=== PATIENT | male | born 1960 | race Two or more races ===

== ENCOUNTER 2023-01-08 09:42 | Emergency (ER) | payer MEDICAID, MEDICARE ==
[~2023-01-08] VITALS: Ht 175.3 cm; Wt 100.0 kg
[2023-01-08 09:52] VITALS: O2SAT 100
[2023-01-08] MEDS ORDERED: LIDOCAINE 5% PATCH TOP SCH (10:30)
[2023-01-08] MEDS ORDERED: KETOROLAC 30MG/ML VIAL IM ONE (10:30)
[2023-01-08] MEDS ORDERED: CYCLOBENZAPRINE 10MG TABLET PO ONE (10:30)
[2023-01-08] MEDS ORDERED: CYCL5TAB MT (10:47)
[2023-01-08] MEDS ORDERED: LIDO700A15 TP (10:47)
[2023-01-08] MEDS ORDERED: TOPUD MT (10:47)
[2023-01-08 11:00] VITALS: BP 158/78; PULSE 68; RESP 18; TEMP 97.7
== END 2023-01-08 11:00 | disposition home or self-care (01) ==
LOC: ER 09:42
DX: M54.50 Low back pain, unspecified (principal); E11.9 Type 2 diabetes mellitus without complications; I10 Essential (primary) hypertension; E78.00 Pure hypercholesterolemia, unspecified; Z90.49 Acquired absence of other specified parts of digestive tract
CPT/HCPCS: 96372; 99283; J1885; Z7610 ×2